=== PATIENT | female | born 1990 | race Caucasian/White ===

== ENCOUNTER 2018-10-11 21:42 | Inpatient (IN) | payer OTHER ==
--- NOTE | 2018-10-11 21:57 | EDPHY ---
H & P Stated Complaint: paranoid delusional Source: Patient - Personal History LMP (Females 10-55): 22-28 Days Ago Current Tetanus/Diphtheria Vaccine: Yes Current Tetanus Diphtheria and Acellular Pertussis (TDAP): Yes - Medical/Surgical History Hx Asthma: No Hx Chronic Respiratory Disease: No Hx Diabetes: No Hx Cardiac Disease: No Hx Renal Disease: No Hx Cirrhosis: No Hx Alcoholism: No Hx HIV/AIDS: No Hx Splenectomy or Spleen Trauma: No Other PMH: ect therapy - Social History Smoking Status: Never smoked Time Seen by Provider: 10/11/18 21:54 HPI/ROS: HPI CHIEF COMPLAINT: Paranoid. Depressed. M1 hold. HISTORY OF PRESENT ILLNESS: 28-year-old female, schizoaffective disorder, bipolar subtype, history depression, presents emergency room with her grandmother from [place] they drove here, she sees Dr. Matute. Gets ECT. Presents emergency room feeling paranoid. Concerned about people outside of her residence. Depressed. Thoughts of SI with no specific plan. Patient psychiatrist is Dr. Matute. Past Medical History: Schizoaffective disorder, bipolar, depression Past Surgical History: No recent surgery Social History: Lives in [place]. Grandmother at bedside. Denies illicit drugs. Family History: Noncontributory. ROS REVIEW OF SYSTEMS: 10 Systems were reviewed and negative with the exception of the elements mentioned in the history of present illness. Exam Constitutional triage nursing summary reviewed, vital signs reviewed, awake/ alert. Eyes normal conjunctivae and sclera, EOMI, PERRLA. HENT normal inspection, atraumatic, moist mucus membranes, no epistaxis, neck supple/ no meningismus, no raccoon eyes. Respiratory clear to auscultation bilaterally, normal breath sounds, no respiratory distress, no wheezing. Cardiovascular rate normal, regular rhythm, no murmur, no edema, distal pulses normal. Gastrointestinal soft, non-tender, no rebound, no guarding, normal bowel sounds, no distension, no pulsatile mass. Genitourinary no CVA tenderness. Musculoskeletal no midline vertebral tenderness, full range of motion, no calf swelling, no tenderness of extremities, no meningismus, good pulses, neurovascularly intact. Skin pink, warm, & dry, no rash, skin atraumatic. Neurologic awake, alert and oriented x 3, AAOx3, moves all 4 extremities equally, motor intact, sensory intact, CN II-XII intact, normal cerebellar, normal vision, normal speech. Psychiatric flat affect, depressed, staring in space. Somewhat paranoid. Heme/Lymph/Immune no lymphadenopathy. Differential Diagnosis: Includes but is not limited to in a particular order: Schizoaffective disorder, bipolar disorder, depressed, paranoid Medical Decision Making: Plan for this patient blood draw for medical clearance , urine drug screen, M1 hold, patient need medical clearance and then mental health evaluation most likely placement. Re-evaluation: (Noé Lemus) Constitutional: Initial Vital Signs Temperature (C) 37 C 10/11/18 21:45 Heart Rate 100 10/11/18 21:45 Respiratory Rate 18 10/11/18 21:45 Blood Pressure 129/87 H 10/11/18 21:45 O2 Sat (%) 97 10/11/18 21:45 O2 Delivery Mode Room Air Allergies/Adverse Reactions: No Allergies [NKDA] Allergy (Verified 01/06/18 14:12) Home Medications: Medication Instructions Recorded Multivitamins [Multivitamin (*)] 1 each PO DAILY 06/10/18 Vortioxetine Hydrobromide 20 mg PO DAILY 06/10/18 [Trintellix] [place] 5/325 (*) 1 - 2 tab PO Q3-4PRN PRN 06/15/18 Rexulti 4 mg PO HS 08/03/18 [place] Carbonate 450 mg PO DAILY 08/17/18 Medical Decision Making ED Course/Re-evaluation: 0535: Patient been sleeping. No acute events. This 7:00 a.m. Patient signed over to Dr. Silva. M1 home. Pending evaluation. (Noé Lemus) 6:50 a.m. The patient has been accepted at [address] [place] [address] Matute. I have completed transfer paperwork. (Ravinder Silva) - Data Points Laboratory Results: Laboratory Results 10/11/18 22:00 10/11/18 22:00 10/11/18 10/11/18 10/11/18 22:40 22:00 22:00 WBC RBC Hgb Hct MCV MCH MCHC RDW Plt Count MPV Neut % (Auto) Lymph % (Auto) [place] % (Auto) Eos % (Auto) Baso % (Auto) Nucleat RBC Rel Count Absolute Neuts (auto) Absolute Lymphs (auto) Absolute Monos (auto) Absolute Eos (auto) Absolute Basos (auto) Absolute Nucleated RBC Immature Gran % Immature Gran # Sodium 139 mEq/L mEq/L (135-145) Potassium 4.2 mEq/L mEq/L (3.5-5.2) Chloride 110 mEq/L mEq/L (97-110) Carbon Dioxide 19 mEq/l L mEq/l (22-31) Anion Gap 10 mEq/L mEq/L (6-14) BUN 9 mg/dL mg/dL (7-23) Creatinine 0.7 mg/dL mg/dL (0.6-1.0) Estimated GFR > 60 Glucose 94 mg/dL mg/dL (70-100) Calcium 9.3 mg/dL mg/dL (8.5-10.4) Beta HCG, Qual Urine Opiates Screen NEGATIVE (NEGATIVE) Urine Barbiturates NEGATIVE (NEGATIVE) Ur Phencyclidine Scrn NEGATIVE (NEGATIVE) Ur Amphetamine Screen NEGATIVE (NEGATIVE) U Benzodiazepines Scrn NEGATIVE (NEGATIVE) Urine Cocaine Screen NEGATIVE (NEGATIVE) U Marijuana (THC) Screen NEGATIVE (NEGATIVE) Ethyl Alcohol < 10 mg/dL mg/dL (0-10) 10/11/18 10/11/18 22:00 22:00 WBC 5.20 10^3/uL 10^3/uL (3.80-9.50) RBC 4.74 10^6/uL 10^6/uL (4.18-5.33) Hgb 15.0 g/dL g/dL (12.6-16.3) Hct 44.2 % % (38.0-47.0) MCV 93.2 fL fL (81.5-99.8) MCH 31.6 pg pg (27.9-34.1) MCHC 33.9 g/dL g/dL (32.4-36.7) RDW 11.9 % % (11.5-15.2) Plt Count 274 10^3/uL 10^3/uL (150-400) MPV 10.6 fL fL (8.7-11.7) Neut % (Auto) 47.2 % % (39.3-74.2) Lymph % (Auto) 38.7 % % (15.0-45.0) [place] % (Auto) 12.3 % % (4.5-13.0) Eos % (Auto) 1.2 % % (0.6-7.6) Baso % (Auto) 0.2 % L % (0.3-1.7) Nucleat RBC Rel Count 0.0 % % (0.0-0.2) Absolute Neuts (auto) 2.46 10^3/uL 10^3/uL (1.70-6.50) Absolute Lymphs (auto) 2.01 10^3/uL 10^3/uL (1.00-3.00) Absolute Monos (auto) 0.64 10^3/uL 10^3/uL (0.30-0.80) Absolute Eos (auto) 0.06 10^3/uL 10^3/uL (0.03-0.40) Absolute Basos (auto) 0.01 10^3/uL L 10^3/uL (0.02-0.10) Absolute Nucleated RBC 0.00 10^3/uL 10^3/uL (0-0.01) Immature Gran % 0.4 % % (0.0-1.1) Immature Gran # 0.02 10^3/uL 10^3/uL (0.00-0.10) Sodium Potassium Chloride Carbon Dioxide Anion Gap BUN Creatinine Estimated GFR Glucose Calcium Beta HCG, Qual NEGATIVE Urine Opiates Screen Urine Barbiturates Ur Phencyclidine Scrn Ur Amphetamine Screen U Benzodiazepines Scrn Urine Cocaine Screen U Marijuana (THC) Screen Ethyl Alcohol Departure - Departure Disposition: [facility] IP Clinical Impression: Bipolar disorder Condition: Fair Referrals: NONE *PRIMARY CARE P,. [Primary Care Provider] - As per Instructions
[2018-10-11 22:11] LABS: PLATELET COUNT 274 10^3/uL (150-400)
[2018-10-12] MEDS ORDERED: MIDAZOLAM 2 MG/2 ML VIAL ONE (08:03)
[2018-10-12] MEDS ORDERED: fentaNYL 100 MCG/2 ML INJ ONE (08:03)
[2018-10-12] MEDS ORDERED: KETOROLAC 30 MG/1 ML SDV ONE (08:03)
[2018-10-12] MEDS ORDERED: ONDANSETRON 4 MG/2 ML VIAL ONE (08:04)
[2018-10-12] MEDS ORDERED: SUCCINYLCHOLINE CHLORIDE 200 MG/10 ML VIAL ONE (08:04)
[2018-10-12] MEDS ORDERED: ETOMIDATE 20 MG/10 ML VIAL ONE (08:04)
[2018-10-12] MEDS ORDERED: MAG HYDROX/AL HYDROX/SIMETH 30 ML UDCUP PO PRN (10:01)
[2018-10-12] MEDS ORDERED: MAGNESIUM HYDROXIDE 30 ML UDCUP PO PRN (10:01)
[2018-10-12] MEDS ORDERED: NS 1,000 ML IV PRN (10:05)
[2018-10-12] MEDS ORDERED: ONDANSETRON DISINTEGRATING 4 MG TAB PO PRN (10:05)
[2018-10-12] MEDS ORDERED: CITRIC ACID/SODIUM CITRATE 30 ML UDCUP PO PRN (10:05)
--- NOTE | 2018-10-12 11:19 | POSTANESTH ---
Post Anesthetic Evaluation Cardiovascular Status: Normal, Stable Respiratory Status: Normal, Stable Level of Consciousness/Mental Status: Can Participate in Eval, Mildly Sleepy, Arousable Pain Control: Adequate, Prn Tx Ordered Nausea/Vomiting Control: Adequate, Prn Tx Ordered Complications Possibly Related to Anesthesia: None Noted
--- NOTE | 2018-10-12 11:20 | PDHPUP ---
History & Physical Update H&P update statement: This history and physical update is based on an assessment of the patient which was completed after admission or registration (within 24 hours), but prior to the surgery/procedure. H&P update: H&P reviewed & patient examined, changes noted (actue depression necesitating inpt admission to psychiatric unit)
--- NOTE | 2018-10-12 11:23 | PDANEPAE ---
ECT Pre Anesthetic Evaluation Allergies/Adverse Reactions: No Allergies [NKDA] Allergy (Verified 01/06/18 14:12) Patient ID confirmed: Yes H&P reviewed: Yes Pre-anesthetic history reviewed: Yes Heart: regular rate and rhythym, tachycardia Lungs: clear to auscultation Mallampati Score: Class 1 ASA Status: II Home Medications: Medication Instructions Recorded Vortioxetine Hydrobromide 20 mg PO DAILY 06/10/18 [Trintellix] Hydrocodone/APAP 5/325 [[place] 1 - 2 each PO Q4-6PRN PRN 06/15/18 5/325 (*)] Brexpiprazole [Rexulti 3 MG (*)] 3 mg PO DAILY 08/03/18 [place] Carbonate ER [Eskalith Cr 450 mg PO HS 08/17/18 450 mg (*)] Acetaminophen [Tylenol 325mg (*)] 325 mg PO DAILY PRN 10/12/18 Loratadine [Claritin 10 mg] 10 mg PO DAILY 10/12/18 [place] 0.25-0.035 1 each PO DAILY 10/12/18 Prazosin HCl [Minipress 1mg (*)] 1 mg PO HS 10/12/18 Medication review: completed Patient interviewed: Yes (paranoid thinking, SI recently with no definite plan) Patient examined: Yes See previous record: Yes Anesthetic plan discussed with patient: Yes Anesthetic risks discussed with patient: Yes ECT Pre-Anesthetic History - Height & Weight Height: 157.48 cm Weight: 68.039 kg BMI: 27.46 - Anesthesia History Hx Anesthesia Complications (with details): no Family Hx Anesthesia Complications: no - Medications In the Past 6 Months the Patient Has Taken: Narcotics - Tobacco/Alcohol/Drug Use Smoking Status: Never smoked Hx Drug/Substance Abuse: Yes Alcohol Use: No (denies) - Prior Surgeries/Hospitalizations Prior Surgeries: none Prior Medical Hospitalizations: none - Pulmonary History ECT Hx Asthma: No Hx Abnormal Chest X-Ray: No Hx Oxygen in Use at Home: No - Cardiovascular History Hx Hypertension: No Currently Uses Hypertension Medication: No Hx Arrhythmias: No Hx Palpitations: No Hx Chest Pain: No Hx Coronary Artery / Peripheral Vascular Disease: No Hx Blood Clot: No - Neurologic History Hx Cerebrovascular Accident: No Hx CT Scan Or MRI Of The Brain: Yes Hx Epilepsy, Convulsions, Seizures, Or Blackouts: No Hx Frequent Or Severe Headaches: No Hx Numbness: No Hx Neurologic Disorder: No - Dental History Current Dental Issues: None - Endocrine History Hx Diabetes: No Current Daily Insulin Injections: No Hx Thyroid Problems: No - Renal/Urologic History Hx Renal Disorders: No Hx Urinary Tract Problems: No - Liver History Hx Hepatic Disorders: No - Cancer History Hx Cancer: No - Hematology History Hx Unexplained Bleeding Of Any Type: No Hx Ease Of Bruising: No Hx Anemia: No - Gastrointestinal History Hx Gastroesophogeal Reflux Disease: No Hx Ulcers: No Hx Hiatal Hernia: No Hx Difficulty Swallowing: No - Musculoskeletal Hisory Hx Chronic Pain: No Hx Arthritis: No - Opthalmic History Hx Glaucoma: No Visual Assistive Devices: None Hx Opthalmic Disorders: No - Other Health History Physical Disabililty: No Recent Cough, Cold, or Fever: Yes Significant Weight Loss In The Last 4 Months: No Possible the Patient Might be : No
[2018-10-12] MEDS ORDERED: PROMETHAZINE HCL 25 MG TAB PO PRN (12:03)
[2018-10-12] MEDS ORDERED: NALOXONE HCL 0.4 MG/ML INJ IVP PRN (12:03)
--- NOTE | 2018-10-12 12:07 | PDECTPN ---
ECT Progress Note Patient Problems: Problems Problem Status Onset Code Bipolar disorder Acute F31.9 Cluster B personality disorder Acute F60.9 Alcohol abuse Acute F10.10 Marijuana abuse Acute F12.10 Schizoaffective disorder, bipolar type Acute F25.0 PTSD (post-traumatic stress disorder) Acute F43.10 Bipolar disorder with current episode depressed Acute F31.30 Depression Acute F32.9 Date: 18 ECT provider: Abdias Cartagena Anesthesia: Margot Saavedra Stimulus dose (%): 100 Pulse width: 0.5 ECT EMG (sec): 38 ECT EEG (sec): 58 ECT treatment type: bilateral QIDS-SR Total Score: 21 QIDS-SR Question #12 Score: 2 Next ECT date: 10/14/18 Next ECT time: 11:30 O/P psychiatrist follow up with : Phil O/P psychiatrist follow up: phone, voice message Home medications: Medication Instructions Recorded Vortioxetine Hydrobromide 20 mg PO DAILY 06/10/18 [Trintellix] Hydrocodone/APAP 5/325 [[place] 1 - 2 each PO Q4-6PRN PRN 06/15/18 5/325 (*)] Brexpiprazole [Rexulti 3 MG (*)] 3 mg PO DAILY 08/03/18 [place] Carbonate ER [Eskalith Cr 450 mg PO HS 08/17/18 450 mg (*)] Acetaminophen [Tylenol 325mg (*)] 325 mg PO DAILY PRN 10/12/18 Loratadine [Claritin 10 mg] 10 mg PO DAILY 10/12/18 [place] 0.25-0.035 1 each PO DAILY 10/12/18 Prazosin HCl [Minipress 1mg (*)] 1 mg PO HS 10/12/18 Medication review: completed Current treatment plan: acute phase Treatment plan frequency: 3 times per week ECT narrative: see admit note.
[2018-10-12] MEDS ORDERED: HYDROCODONE/APAP 5/325 TAB ONE (12:50)
[2018-10-12] MEDS: HYDROCODONE/APAP 5/325 TAB PO PRN ×2 (12:51→20:24)
--- NOTE | 2018-10-12 14:07 | PDECTPN ---
ECT Progress Note Patient Problems: Problems Problem Status Onset Code Bipolar disorder Acute F31.9 Alcohol abuse Acute F10.10 Bipolar disorder with current episode depressed Acute F31.30 Cluster B personality disorder Acute F60.9 Depression Acute F32.9 Marijuana abuse Acute F12.10 PTSD (post-traumatic stress disorder) Acute F43.10 Schizoaffective disorder, bipolar type Acute F25.0 Date: 10/12/18 ECT provider: Abdias Cartagena Stimulus dose (%): 100 Pulse width: 0.5 ECT EMG (sec): 38 ECT EEG (sec): 58 QIDS-SR Total Score: 21 QIDS-SR Question #12 Score: 2 O/P psychiatrist follow up with : Phil O/P psychiatrist follow up: phone, voice message Home medications: Medication Instructions Recorded Vortioxetine Hydrobromide 20 mg PO DAILY 06/10/18 [Trintellix] Hydrocodone/APAP 5/325 [[place] 1 - 2 each PO Q4-6PRN PRN 06/15/18 5/325 (*)] Brexpiprazole [Rexulti 3 MG (*)] 3 mg PO DAILY 08/03/18 [place] Carbonate ER [Eskalith Cr 450 mg PO HS 08/17/18 450 mg (*)] Acetaminophen [Tylenol 325mg (*)] 325 mg PO DAILY PRN 10/12/18 Loratadine [Claritin 10 mg] 10 mg PO DAILY 10/12/18 [place] 0.25-0.035 1 each PO DAILY 10/12/18 Prazosin HCl [Minipress 1mg (*)] 1 mg PO HS 10/12/18 Current treatment plan: acute phase ECT narrative: see admit note. AIMS test is 0
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
--- NOTE | 2018-10-12 14:22 | ASMTTCLDSP ---
TLC Discharge Disposition Disposition: Answers: Admit Disposition Notes: Notes: Voluntary admit to . Discharge Concerns/Recommendations: Notes: In consultation with [facility] ED physician, Ravinder Silva MD, on-call psychiatrist, Julián Oglesby MD, and Abdias Cartagena MD, all concurred to have pt admitted to [facility] as a voluntary ECT patient. Pt was given the prohibited belongings list while in the ED. Was patient given the Answers: Yes Inpatient [facility] Prohibited Belongings List while in the ED? For inpatient Abdias Cartagena MD admission, the following psychiatrist agreed to accept patient for admission to [facility] Date Signed: 10/12/2018 07:14 AM Electronically Signed By:Kristopher Briones
--- NOTE | 2018-10-12 14:46 | BAPA ---
IDENTIFYING DATA: This patient is a 28-year-old single white female who has been under the care of t his telegraphic typewriter installer for outpatient maintenance ECT and a prior inpatient hospitalization in May of 2018. S he sees Chaka Villarreal NP, for psychopharmacology. She presently lives with her grandmother in [place]. 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 Her last inpatient stay was at [facility] from 06/07/2018, through 06/12/2018. SOURCE OF INFORMATION: Include the patient, who is a fair historian, discussion by phone with her gr andmother and also by phone with Chaka Villarreal. Please see the telegraphic typewriter installer's initial ECT consultation dated 11/27/2017, as well as her discharge summary f rom 06/06/2018. This patient has long history of mood and psychotic symptoms most consistent with sc hizoaffective disorder, bipolar type, as well as alcohol and marijuana use disorder in remission pres ently. She also has a history of posttraumatic stress disorder given childhood trauma of being abduc brent by her Indian mother to live in [place], but ending up in foster care given her mother's mental i llness. The patient had been doing the best she had in years after the initial acute course of ECT f ollowed by a number of months of maintenance treatment last winter. However, in May, she had star brent to deteriorate when she ran out of one of her new medications, Rexulti, and became noncompliant f or a few weeks, prompting a relapse from which she has never fully recovered, despite fairly aggressi ve further acute ECT followed by more frequent maintenance treatments. Likewise, Chaka Villarreal had b een adjusting her medications without clear benefit. She does not endorse the use of alcohol or clarence gilson as a contributing variable and her urine drug screen was indeed negative in the emergency depar tment. There are no clear psychosocial triggers at this time. The only medical contributing issue c ould be a TSH that came back elevated at greater than 6, likely secondary to her recent initiation of lithium. Per Chaka Villarreal, there is some question whether she is fully compliant with her medicati on, although her grandmother feels that she has been. CURRENT MEDICATIONS: Her present medications have included: 1. Rexulti 3 mg p.o. daily. 2. Aspen carbonate 400 mg p.o. daily. 3. Trintellix 20 mg daily. 4. Prazosin 1 mg q.h.s. 5. Claritin 10 mg p.o. daily. Her present exacerbation includes significant psychotic symptoms which she feels lead to her depressi ve symptoms, hopelessness and suicidal thinking. Her QUIDS score is 21 and she scores a 2 on questio n #12 regarding suicidal thinking. She endorses visual hallucinations and even some command auditory hallucinations. For instance, she had contemplated using coping skills recently learned in her ther apy, such as taking a bath to address her nocturnal onset of paranoia, however, a voice not her own c oaxed her by saying "yes, go take a bath and drown yourself." She is unable to feel that she can war d off such encouragement and is unsure whether she would not act upon it. She has visual hallucinati ons, seeing eyes detached from a body floating and watching her. She reads things referentially into other people's actions. Her sleep and appetite are diminished. Affect is blunted and her speech is impoverished. Per her grandmother, she is much more isolative and blunted. Carlos also notices a dramatic increase in irritability. The patient has a narrative that maintenance ECT treatments not o nly have not been helpful, but have arguably made her worse. However, carlos believes and has seen evidence that she has been insidiously declining for months and there does not seem to be a clear cor relation with the ECT. She has been going to therapy with [facility], who has approached her as a traum a patient, but has clearly noticed a worsening of her status, especially as she has seen her in the e vening time where she looks "horrible" per Chaka Villarreal's report from [facility]. Her urine drug screen in the emergency room was negative. Complete blood count was normal. BioChem profile was normal. TSH was elevated as stated at 6.08. Beta HCG was negative. Aspen level, whic h was drawn 24 hours after her last dose, was 0.2 (even if this level is artificially reduced, as it was taken 12 hours after the normal trough, one can easily presume that her blood level is still subt herapeutic). The patient does, however, complain of lithium related tremor. Chaka Villarreal also rachel cated that the patient had some mouth movements, possibly consistent with early tardive dyskinesia wh en the Rexulti was increased to 4 mg, which then went away when it was reduced to 3 mg. She has been contemplating wanting to change the patient's medication (which will be discussed in the treatment p lupillo section of this report). PAST PSYCHIATRIC HISTORY, FAMILY HISTORY, SOCIAL HISTORY, ALCOHOL AND DRUG HISTORY: Please see the vincent novak's initial consultation from November of 2017. Mental. STATUS EXAM: The patient is a 28-year-old white female who appears her stated age. She appears pale , disheveled, laura looking with partial eye contact and somewhat impaired relatedness. Her affect is blunted. There is some clear psychomotor slowing. No evidence of tardive dyskinesia or EPS note d. Speech is monotonous and impoverished. Thought processes are goal directed. Thought content is positive for auditory and visual hallucinations, paranoid and referential delusions and suicidal idea tion with increasingly poor impulse control. She also has command auditory hallucinations. She is a lert and oriented x3. She has subjective impairment in memory, focus, concentration, and executive f unctioning. Judgment and insight are impaired and impulse control is tenuous. ADMITTING DIAGNOSES: [place] I: Schizoaffective disorder, bipolar type; history of alcohol and THC use disorder, posttraumat ic stress disorder, rule out hypothyroidism, weight gain. RECOMMENDATION: I have discussed at length with patient, grandmother and Chaka Villarreal the fact that this patient had had clear benefit during her initial acute course of ECT when she was at [facility] with her psychotic and mood symptoms. Her subjective appraisal that ECT is not really helping when we are doing it infrequently may not be an accurate judgment in my opinion. I, therefore, have coun seled her to at least try a short burst of acute ECT treatments, as she has once again fallen into a state that is ominously dire and not dissimilar to her initial presenting status in November of 2017. This time, there does not seem to be a precipitating agent or situation, such as substances, howeve r, her thyroid could have some contributory affect. Chaka Villarreal and myself question whether Trinte llix could be activating her and increasing irritability, given her bipolar status. Furthermore, the Rexulti, given its dopamine partial agonist may not be ideal for her positive psychotic symptoms. T hus, Trintellix and Rexulti will be discontinued. They both have rather long half-lives and should s elf-taper well. I will go ahead and start Geodon 40 mg twice daily with food. Her EKG revealed a no rmal QTC interval of 450. I will watch closely for any incipient tardive dyskinesia. Preventively, I would like her to start vitamin E and gingko biloba, but neither of those are on formulary in the ospital. I will see if grandmother can bring those in. I will start a B complex vitamin. Clozapine had been discussed with patient and Chaka Villarreal, but this patient may not have adequate adherence to be able to comply with all the lab testing and she is already quite overweight. The metabolic dis turbance from clozapine may arguably be worse than even tardive dyskinesia, if that is the ultimate w orst case scenario with Geodon. I will consider using propranolol for lithium induced tremor or Geod on induced akathisia. The lithium will be increased to 600 mg, but be held the night prior to ECT. Vraylar was also discussed, but it was unlikely that this patient's insurance would cover that. The patient will again need 24/7 supervision after discharge, if we do enough acute ECT to warrant that b ased on cognitive side effects. /[id number]/MODL
[2018-10-12] MEDS: ZIPRASIDONE HCL 40 MG CAP PO SCH (17:23)
--- NOTE | 2018-10-12 18:32 | BCON ---
INTERNAL MEDICINE CONSULTATION. DATE OF CONSULTATION: 10/12/2018 REFERRING PHYSICIAN: Abdias Cartagena MD REASON FOR REFERRAL: Medical clearance for inpatient behavioral health stay. HISTORY OF PRESENT ILLNESS: This is a patient who gets ECT per Dr. Cartagena. She came to the [facility] Emergency Room with her grandmother from [place] with depression, paranoia and thoughts of suicidal ideation. She was admitted for further psychiatric care including electroconvulsive therapy. She is currently without any acute complaints other than reporting a headache post ECT. PAST MEDICAL HISTORY: She denies any history of medical illnesses. She has psychiatric diagnoses of schizoaffective disorder, bipolar disorder, and depression. PAST SURGICAL HISTORY: She denies any history of surgeries. SOCIAL HISTORY: She rents a room from her grandmother in [place]. She denies smoking or alcohol use or illicit drug use. 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 She has a boyfriend. FAMILY HISTORY: Noncontributory. MEDICATIONS: Prior to admission. 1. Loratadine 10 mg p.o. daily. 2. Acetaminophen 325 mg p.o. daily p.r.n. 3. Prazosin 1 mg p.o. at bedtime. 4. control pill. 5. [place] 450 mg p.o. at bedtime. 6. Hydrocodone/acetaminophen 5/325, one to 2 tablets p.o. q.4-6 hours p.r.n. 7. Brexpiprazole 3 mg p.o. daily. 8. Vortioxetine 20 mg p.o. daily. ALLERGIES: There are no known drug allergies. REVIEW OF SYSTEMS: Other than her post ECT headache, she denies pain. She denies fevers or chills. She has had weight gain, which she attributes to the brexpiprazole. She gets regular exercise walking with her boyfriend and they have begun jogging recently. Otherwise, a 10-point review of systems is negative. PHYSICAL EXAM: VITAL SIGNS: Blood pressure is 103/59, heart rate is 94, respiratory rate is 14, oxygen saturation is 93% on room air. Her weight is 68 kg for a body mass index of 27.4. GENERAL: This is an overweight woman, sitting on the couch, dressed in street clothes, cooperative and in no acute distress. HEENT: Extraocular movements are intact. Pupils are equal, round, reactive to light. Mucous membranes are moist. Dentition is in good condition. She has an uncrowded airway, Mallampati class 1. NECK: Supple. HEART: Regular rate and rhythm with no murmurs, rubs, or gallops. LUNGS: Clear to auscultation bilaterally. ABDOMEN: Benign. EXTREMITIES: There is no cyanosis, clubbing, or edema. NEUROLOGIC: She is alert and oriented x3. She has a somewhat flat affect. Cranial nerves 2-12 are grossly intact. There is no focal weakness. Sensation is intact to light touch. LABORATORY STUDIES: From the emergency department, CBC was overall within normal limits. She had a decrement of basophils of no clinical significance. Serum chemistry revealed normal renal function and electrolytes but for a slightly low carbon dioxide at 19. TSH was slightly elevated at 6.08. Free T4 and free T3 were normal. Beta hCG was negative for . Toxicology screen in the serum was negative for ethyl alcohol. [place] level was undetectable. Toxicology screen in the urine was negative for any substances of abuse. ASSESSMENT/RECOMMENDATIONS: 1. Mental health issues, receiving ongoing electroconvulsive therapy per Dr. Cartagena. 2. Weight gain, possibly due to psychiatric medications. She has begun and recently intensified an exercise program. She might benefit from consultation with the dietitian as avoidance of further weight gain would be in her best interest. I see no medical contraindications to this patient's continued stay on the inpatient behavioral health unit or to any psychiatric medications or procedures. Thank you very much for including me in the care of this patient and please do not hesitate to contact me or the hospitalist service should there be need for further medical evaluation. /[id number]/MODL MTDD
[2018-10-12] MEDS: LITHIUM CARBONATE ER 300 MG TAB PO SCH (20:24)
[2018-10-12] MEDS: PRAZOSIN HCL 1 MG CAP PO SCH (20:24)
[2018-10-12] MEDS: OMEGA-3 FATTY ACIDS 1,000 MG CAP PO SCH (20:25)
[2018-10-12] MEDS ORDERED: LITHIUM CARBONATE ER 450 MG TAB PO SCH (21:00)
--- NOTE | 2018-10-13 06:56 | CPEKG ---
Test Reason : OPEN Blood Pressure : / mmHG Vent. Rate : 087 BPM Atrial Rate : 085 BPM P-R Int : 159 ms QRS Dur : 088 ms QT Int : 377 ms P-R-T Axes : 048 047 -12 degrees QTc Int : 454 ms Sinus rhythm Borderline T abnormalities, inferior leads Confirmed by Noé Lemus ([id number]) on 10/13/2018 6:55:46 AM Referred By: Confirmed By:Noé Lemus
--- NOTE | 2018-10-13 08:04 | ASMTBHMTP ---
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 Pt receives maintenance outpatient ECT treatment under Dr. Abdias Cartagena at the [facility]. She was most recently hospitalized at [facility] and then transferred to [facility] 3 from 06/06/18 to 06/12/18 after she had taken an unknown amount of hydrocodone and aspirin and her boyfriend found her. At that time, she had not been taking her Rexulti. She had also been hospitalized two other times within the past year and that her depression worsened in April 2017. She was hospitalized at [facility] in [place] for 7 days. She could not recall the exact dates of the other two hospitalizations. Pt agrees to albert for safety on the [facility] and agrees to being a voluntary admission. Patient's stated presenting problems: Notes: "Depression and Psychosis Patient's goals for treatment: Notes: To feel better Patient's strengths: Notes: none Identify supports outside of hospital: Notes: family and friends Discharge criteria: Notes: Suicidal Ideation will resolve and patient will have a plan to safely manage recurrent suicidal ideation. Initial disposition plan/considerations: Notes: Return home to [facility]* Master Treatment Plan Required Signatures Psychiatrist signature: Answers: Psychiatrist: RN on-shift signature: Answers: RN: Patient signature: Answers: Patient: Date Signed: 10/13/2018 08:03 AM Electronically Signed By:Silvano Villarreal
[2018-10-13] MEDS: CETIRIZINE 10 MG TAB PO SCH (08:50)
[2018-10-13] MEDS: OMEGA-3 FATTY ACIDS 1,000 MG CAP PO SCH ×2 (08:50→20:10)
[2018-10-13] MEDS: VITAMIN B COMPLEX 1 EA CAP/TAB PO SCH (08:50)
[2018-10-13] MEDS: ZIPRASIDONE HCL 40 MG CAP PO SCH ×2 (08:50→17:34)
[2018-10-13] MEDS ORDERED: (Vortioxetine Hydrobromide [Trintellix] 20 MG) PO SCH (09:00)
[2018-10-13] MEDS ORDERED: BREXPIPRAZOLE 3 MG TAB PO SCH (09:00)
[2018-10-13] MEDS: MONO LINYAH PO SCH (09:07)
--- NOTE | 2018-10-13 10:56 | SOAPPROG ---
SOAP Progress Note Assessment/Plan: Assessment: Schizoaffective disorder, Bipolar type, ETOH and THC use disorder in remission, PTSD Plan: Pt in bed while interviewed at 1045 am. Unkempt, disheveled. Affect blunted, Impov speech. Admits to feeling over sedated,likely due to addition to Geodon. SOme increase in tremor noted. [place] some "fear" and paranoia last night into today, but agrees that her overall mood and psychotic symptoms are a bit less intense post ECT. Has been ruminating about stories of " children found in the mountains" and admits she cannot provide a rational reason why she is dwelling on this theme. Some on going referential delusional material. Some AH. No iván CAH coaxing her to self harm. No clear w/d symptoms with d/c rexulti or trintillix both of which have long 1/2 lives. Read and appreciate Dr Almonte' s note. Have repleted pt with synthroid due to elevated TSH and potential for this to be correlated with mood instability. Hopefully, being off AD and Rexulti, pt may lose weight as Geodon is mostly metabolically neutral 10/13/18 10:52 10/13/18 10:56 Objective: Vital Signs Temp Pulse Resp BP Pulse Ox 36.9 C 74 14 103/57 L 96 10/13/18 06:00 10/13/18 06:00 10/13/18 06:00 10/13/18 06:00 10/13/18 06:00 10/12/18 10/13/18 10/14/18 05:59 05:59 05:59 Intake Total 1000 Balance 1000 ICD10 Worksheet Patient Problems: Problems Problem Status Onset Bipolar disorder Acute Alcohol abuse Acute Bipolar disorder with current episode depressed Acute Cluster B personality disorder Acute Depression Acute Marijuana abuse Acute PTSD (post-traumatic stress disorder) Acute Schizoaffective disorder, bipolar type Acute
[2018-10-13] MEDS: LEVOTHYROXINE 50 MCG TAB PO SCH (10:57)
[2018-10-13] MEDS: PRAZOSIN HCL 1 MG CAP PO SCH (20:10)
[2018-10-14] MEDS ORDERED: CITRIC ACID/SODIUM CITRATE 30 ML UDCUP PO PRN (04:00)
[2018-10-14] MEDS ORDERED: NS 1,000 ML IV PRN (04:00)
[2018-10-14] MEDS ORDERED: ONDANSETRON DISINTEGRATING 4 MG TAB PO PRN (04:00)
[2018-10-14] MEDS: OMEGA-3 FATTY ACIDS 1,000 MG CAP PO SCH ×2 (08:25→20:31)
[2018-10-14] MEDS: VITAMIN B COMPLEX 1 EA CAP/TAB PO SCH (08:25)
[2018-10-14] MEDS: LEVOTHYROXINE 50 MCG TAB PO SCH (08:25)
[2018-10-14] MEDS: CETIRIZINE 10 MG TAB PO SCH (08:25)
[2018-10-14] MEDS: ZIPRASIDONE HCL 40 MG CAP PO SCH ×2 (08:25→18:05)
[2018-10-14] MEDS: MONO LINYAH PO SCH (11:13)
[2018-10-14] MEDS ORDERED: CITRIC ACID/SODIUM CITRATE 30 ML UDCUP ONE (11:53)
[2018-10-14] MEDS ORDERED: ONDANSETRON DISINTEGRATING 4 MG TAB ONE (11:53)
--- NOTE | 2018-10-14 12:14 | PDANEPAE ---
ECT Pre Anesthetic Evaluation Allergies/Adverse Reactions: No Allergies [NKDA] Allergy (Verified 01/06/18 14:12) Patient ID confirmed: Yes H&P reviewed: Yes Pre-anesthetic history reviewed: Yes Heart: tachycardia Lungs: clear to auscultation Mallampati Score: Class 1 ASA Status: II Home Medications: Medication Instructions Recorded Vortioxetine Hydrobromide 20 mg PO DAILY 06/10/18 [Trintellix] Hydrocodone/APAP 5/325 [[place] 1 - 2 each PO Q4-6PRN PRN 06/15/18 5/325 (*)] Brexpiprazole [Rexulti 3 MG (*)] 3 mg PO DAILY 08/03/18 [place] Carbonate ER [Eskalith Cr 450 mg PO HS 08/17/18 450 mg (*)] Acetaminophen [Tylenol 325mg (*)] 325 mg PO DAILY PRN 10/12/18 Loratadine [Claritin 10 mg] 10 mg PO DAILY 10/12/18 [place] 0.25-0.035 1 each PO DAILY 10/12/18 Prazosin HCl [Minipress 1mg (*)] 1 mg PO HS 10/12/18 Medication review: completed Patient interviewed: Yes (No problems after last ECT.) Patient examined: Yes See previous record: Yes Anesthetic plan discussed with patient: Yes Anesthetic risks discussed with patient: Yes ECT Pre-Anesthetic History - Height & Weight Height: 157.48 cm Weight: 68.039 kg BMI: 27.46 - Anesthesia History Hx Anesthesia Complications (with details): no Family Hx Anesthesia Complications: no - Medications In the Past 6 Months the Patient Has Taken: Narcotics - Tobacco/Alcohol/Drug Use Smoking Status: Never smoked Hx Drug/Substance Abuse: Yes Alcohol Use: No (denies) - Prior Surgeries/Hospitalizations Prior Surgeries: none Prior Medical Hospitalizations: none - Pulmonary History ECT Hx Asthma: No Hx Abnormal Chest X-Ray: No Hx Oxygen in Use at Home: No - Cardiovascular History Hx Hypertension: No Currently Uses Hypertension Medication: No Hx Arrhythmias: No Hx Palpitations: No Hx Chest Pain: No Hx Coronary Artery / Peripheral Vascular Disease: No Hx Blood Clot: No - Neurologic History Hx Cerebrovascular Accident: No Hx CT Scan Or MRI Of The Brain: Yes Hx Epilepsy, Convulsions, Seizures, Or Blackouts: No Hx Frequent Or Severe Headaches: No Hx Numbness: No Hx Neurologic Disorder: No - Dental History Current Dental Issues: None - Endocrine History Hx Diabetes: No Current Daily Insulin Injections: No Hx Thyroid Problems: No - Renal/Urologic History Hx Renal Disorders: No Hx Urinary Tract Problems: No - Liver History Hx Hepatic Disorders: No - Cancer History Hx Cancer: No - Hematology History Hx Unexplained Bleeding Of Any Type: No Hx Ease Of Bruising: No Hx Anemia: No - Gastrointestinal History Hx Gastroesophogeal Reflux Disease: No Hx Ulcers: No Hx Hiatal Hernia: No Hx Difficulty Swallowing: No - Musculoskeletal Hisory Hx Chronic Pain: No Hx Arthritis: No - Opthalmic History Hx Glaucoma: No Visual Assistive Devices: None Hx Opthalmic Disorders: No - Other Health History Physical Disabililty: No Recent Cough, Cold, or Fever: Yes Significant Weight Loss In The Last 4 Months: No Possible the Patient Might be : No
--- NOTE | 2018-10-14 12:14 | PDHPUP ---
History & Physical Update H&P update statement: This history and physical update is based on an assessment of the patient which was completed after admission or registration (within 24 hours), but prior to the surgery/procedure. H&P update: H&P reviewed & patient examined, changes noted (No changess since last ECT treatment.)
--- NOTE | 2018-10-14 12:17 | PDECTPN ---
ECT Progress Note Patient Problems: Problems Problem Status Onset Code Bipolar disorder Acute F31.9 Alcohol abuse Acute F10.10 Bipolar disorder with current episode depressed Acute F31.30 Cluster B personality disorder Acute F60.9 Depression Acute F32.9 Marijuana abuse Acute F12.10 PTSD (post-traumatic stress disorder) Acute F43.10 Schizoaffective disorder, bipolar type Acute F25.0 Date: 10/14/18 Treatment#: 2 ECT provider: Abdias Cartagena Anesthesia: Margot Saavedra Stimulus dose (%): 100 Pulse width: 0.5 ECT EMG (sec): 36 ECT EEG (sec): 47 ECT treatment type: bilateral QIDS-SR Total Score: 13 QIDS-SR Question #12 Score: 2 MMSE Total Score (Max = 21): 18 Next ECT date: 10/16/18 Next ECT time: 11:00 O/P psychiatrist follow up with : Phil O/P psychiatrist follow up: phone, voice message Home medications: Medication Instructions Recorded Vortioxetine Hydrobromide 20 mg PO DAILY 06/10/18 [Trintellix] Hydrocodone/APAP 5/325 [[place] 1 - 2 each PO Q4-6PRN PRN 06/15/18 5/325 (*)] Brexpiprazole [Rexulti 3 MG (*)] 3 mg PO DAILY 08/03/18 [place] Carbonate ER [Eskalith Cr 450 mg PO HS 08/17/18 450 mg (*)] Acetaminophen [Tylenol 325mg (*)] 325 mg PO DAILY PRN 10/12/18 Loratadine [Claritin 10 mg] 10 mg PO DAILY 10/12/18 [place] 0.25-0.035 1 each PO DAILY 10/12/18 Prazosin HCl [Minipress 1mg (*)] 1 mg PO HS 10/12/18 Current treatment plan: acute phase Treatment plan frequency: 3 times per week ECT narrative: see admit note. AIMS test is 0 Note from 10/13: Pt in bed while interviewed at 1045 am. Unkempt, disheveled. Affect blunted, Impov speech. Admits to feeling over sedated,likely due to addition to Geodon. SOme increase in tremor noted. [place] some "fear" and paranoia last night into today, but agrees that her overall mood and psychotic symptoms are a bit less intense post ECT. Has been ruminating about stories of " [place] found in the mountains" and admits she cannot provide a rational reason why she is dwelling on this theme. Some on going referential delusional material. Some AH. No iván CAH coaxing her to self harm. No clear w/d symptoms with d/c rexulti or trintillix both of which have long 1/2 lives. Read and appreciate Dr Almonte' s note. Have repleted pt with synthroid due to elevated TSH and potential for this to be correlated with mood instability. Hopefully, being off AD and Rexulti, pt may lose weight as Jarvis is mostly metabolically neutral 10/14/18: Pt reports feeling less sedated from meds and woke up "with a lot of energy". Still appears somewhat unkempt and blunted, however. Still admits to paranoid and macabre ruminations about children in the mountains, as spoken of yesterday. She admits that she is jonesing to be discharged, yet acknowledges that this may not be an astute judgment given her recent CAH and SI, the latter of which still persists. No evidence of TD still.
[2018-10-14] MEDS ORDERED: NALOXONE HCL 0.4 MG/ML INJ IVP PRN (12:28)
[2018-10-14] MEDS ORDERED: HYDROCODONE/APAP 5/325 TAB PO PRN (12:28)
[2018-10-14] MEDS ORDERED: PROMETHAZINE HCL 25 MG TAB PO PRN (12:28)
[2018-10-14] MEDS ORDERED: HYDROCODONE/APAP 5/325 TAB ONE (13:03)
[2018-10-14] MEDS: LITHIUM CARBONATE ER 300 MG TAB PO SCH (20:31)
[2018-10-14] MEDS: PRAZOSIN HCL 1 MG CAP PO SCH (20:31)
[2018-10-15] MEDS: ZIPRASIDONE HCL 40 MG CAP PO SCH ×2 (09:10→20:03)
[2018-10-15] MEDS: OMEGA-3 FATTY ACIDS 1,000 MG CAP PO SCH ×2 (09:10→20:03)
[2018-10-15] MEDS: VITAMIN B COMPLEX 1 EA CAP/TAB PO SCH (09:10)
[2018-10-15] MEDS: CETIRIZINE 10 MG TAB PO SCH (09:10)
[2018-10-15] MEDS: LEVOTHYROXINE 50 MCG TAB PO SCH (09:10)
--- NOTE | 2018-10-15 12:18 | ASMTCMCOM ---
CM Note CM Note Notes: The patient participated in clinical treatment team rounds. She was engaged and appropriate. She reported having a difficult weekend prior to admission due to "seeing eyes looking at me." She stated, "I was conscious that they were not real but that didn't prevent me from seeing them. I became depressed and scared." The patient reported fear that she will continue to hallucinate. She reported that she has a "fear of the dark" and sleeps with the lights on. The patient reported that she is "working on getting out of here" and plans to discharge tomorrow, 10/16/18 after ECT treatment. The patient has received two treatments since being hospitalized. The patient plans to have her boyfriend transport her to [place] where she will stay with family members; father or aunt, until her grandmother returns for traveling at which time the patient will continue living with her grandmother. The patient reported that it is a stable and supportive environment. She stated, "I moved out of my apartment and in with my grandmother because of my mental health issues." Date Signed: 10/15/2018 12:18 PM Electronically Signed By:Soha Flores
--- NOTE | 2018-10-15 12:53 | SOAPPROG ---
SOAP Progress Note Assessment/Plan: Assessment: Schizoaffective disorder, Bipolar type, ETOH and THC use disorder in remission, PTSD Plan: Pt in bed while interviewed at 1045 am. Unkempt, disheveled. Affect blunted, Impov speech. Admits to feeling over sedated,likely due to addition to Geodon. SOme increase in tremor noted. [place] some "fear" and paranoia last night into today, but agrees that her overall mood and psychotic symptoms are a bit less intense post ECT. Has been ruminating about stories of " children found in the mountains" and admits she cannot provide a rational reason why she is dwelling on this theme. Some on going referential delusional material. Some AH. No iván CAH coaxing her to self harm. No clear w/d symptoms with d/c rexulti or trintillix both of which have long 1/2 lives. Read and appreciate Dr Almonte' s note. Have repleted pt with synthroid due to elevated TSH and potential for this to be correlated with mood instability. Hopefully, being off AD and Rexulti, pt may lose weight as Geodon is mostly metabolically neutral 10/13/18 10:52 10/13/18 10:56 10/15/18 12:45 Met with pt and BF, and then with grandma by phone who is in [place]. She seems a bit brighter and denies CAH or significant SI. Has some future orientation, re wanting to get back to work. Still having nocturnal increase in paranoid ideas and macabre thoughts. No signs of TD or akithesia. Will increase Geodon dose at hs. May Rx propranolol to be used for restlessness/akithisia or Li induced tremor. GM reassured me that father and AUnt and 1/2 sister who are coming in to visit would create a supportive environment if she d/c'ed tomorrow. I counselled her to let father know that pt can come back to ED if symptoms increase. Objective: Vital Signs Temp Pulse Resp BP Pulse Ox 36.9 C 853 H 14 98/56 L 95 10/15/18 06:00 10/15/18 06:00 10/15/18 06:00 10/15/18 06:00 10/15/18 06:00 10/14/18 10/15/18 10/16/18 05:59 05:59 05:59 Intake Total 175 Balance 175 ICD10 Worksheet Patient Problems: Problems Problem Status Onset Bipolar disorder Acute Alcohol abuse Acute Bipolar disorder with current episode depressed Acute Cluster B personality disorder Acute Depression Acute Marijuana abuse Acute PTSD (post-traumatic stress disorder) Acute Schizoaffective disorder, bipolar type Acute
[2018-10-15] MEDS ORDERED: PROPRANOLOL HCL 10 MG TAB PO PRN (12:57)
[2018-10-15] MEDS: MONO LINYAH PO SCH (13:18)
[2018-10-15] MEDS: PRAZOSIN HCL 1 MG CAP PO SCH (20:03)
[2018-10-16] MEDS ORDERED: NS 1,000 ML IV PRN (04:00)
[2018-10-16] MEDS ORDERED: ONDANSETRON DISINTEGRATING 4 MG TAB PO PRN (04:00)
[2018-10-16] MEDS ORDERED: CITRIC ACID/SODIUM CITRATE 30 ML UDCUP PO PRN (04:00)
[2018-10-16] MEDS ORDERED: LIDOCAINE 2% 5 ML SDV ONE (06:01)
[2018-10-16] MEDS: CETIRIZINE 10 MG TAB PO SCH (08:17)
[2018-10-16] MEDS: OMEGA-3 FATTY ACIDS 1,000 MG CAP PO SCH ×2 (08:17→19:00)
[2018-10-16] MEDS: VITAMIN B COMPLEX 1 EA CAP/TAB PO SCH (08:17)
[2018-10-16] MEDS: ZIPRASIDONE HCL 40 MG CAP PO SCH ×2 (08:17→18:59)
[2018-10-16] MEDS: MONO LINYAH PO SCH (08:28)
[2018-10-16] MEDS: LEVOTHYROXINE 50 MCG TAB PO SCH (08:35)
[2018-10-16] MEDS ORDERED: fentaNYL 100 MCG/2 ML INJ ONE (10:01)
[2018-10-16] MEDS ORDERED: ONDANSETRON DISINTEGRATING 4 MG TAB ONE (11:35)
[2018-10-16] MEDS ORDERED: CITRIC ACID/SODIUM CITRATE 30 ML UDCUP ONE (11:35)
--- NOTE | 2018-10-16 12:09 | PDHPUP ---
History & Physical Update H&P update statement: This history and physical update is based on an assessment of the patient which was completed after admission or registration (within 24 hours), but prior to the surgery/procedure. H&P update: H&P reviewed & patient examined, changes noted (No changes since last treatment.)
--- NOTE | 2018-10-16 12:10 | PDANEPAE ---
ECT Pre Anesthetic Evaluation Allergies/Adverse Reactions: No Allergies [NKDA] Allergy (Verified 01/06/18 14:12) Patient ID confirmed: Yes H&P reviewed: Yes Pre-anesthetic history reviewed: Yes Heart: regular rate and rhythym Lungs: clear to auscultation Mallampati Score: Class 1 ASA Status: II Home Medications: Medication Instructions Recorded Vortioxetine Hydrobromide 20 mg PO DAILY 06/10/18 [Trintellix] Hydrocodone/APAP 5/325 [[place] 1 - 2 each PO Q4-6PRN PRN 06/15/18 5/325 (*)] Brexpiprazole [Rexulti 3 MG (*)] 3 mg PO DAILY 08/03/18 [place] Carbonate ER [Eskalith Cr 450 mg PO HS 08/17/18 450 mg (*)] Acetaminophen [Tylenol 325mg (*)] 325 mg PO DAILY PRN 10/12/18 Loratadine [Claritin 10 mg] 10 mg PO DAILY 10/12/18 [place]inyah 0.25-0.035 1 each PO DAILY 10/12/18 Prazosin HCl [Minipress 1mg (*)] 1 mg PO HS 10/12/18 Medication review: completed Patient interviewed: Yes Patient examined: Yes See previous record: Yes Anesthetic plan discussed with patient: Yes Anesthetic risks discussed with patient: Yes ECT Pre-Anesthetic History - Height & Weight Height: 157.48 cm Weight: 68.039 kg BMI: 27.46 - Anesthesia History Hx Anesthesia Complications (with details): no Family Hx Anesthesia Complications: no - Medications In the Past 6 Months the Patient Has Taken: Narcotics - Tobacco/Alcohol/Drug Use Smoking Status: Never smoked Hx Drug/Substance Abuse: Yes Alcohol Use: No (denies) - Prior Surgeries/Hospitalizations Prior Surgeries: none Prior Medical Hospitalizations: none - Pulmonary History ECT Hx Asthma: No Hx Abnormal Chest X-Ray: No Hx Oxygen in Use at Home: No - Cardiovascular History Hx Hypertension: No Currently Uses Hypertension Medication: No Hx Arrhythmias: No Hx Palpitations: No Hx Chest Pain: No Hx Coronary Artery / Peripheral Vascular Disease: No Hx Blood Clot: No - Neurologic History Hx Cerebrovascular Accident: No Hx CT Scan Or MRI Of The Brain: Yes Hx Epilepsy, Convulsions, Seizures, Or Blackouts: No Hx Frequent Or Severe Headaches: No Hx Numbness: No Hx Neurologic Disorder: No - Dental History Current Dental Issues: None - Endocrine History Hx Diabetes: No Current Daily Insulin Injections: No Hx Thyroid Problems: No - Renal/Urologic History Hx Renal Disorders: No Hx Urinary Tract Problems: No - Liver History Hx Hepatic Disorders: No - Cancer History Hx Cancer: No - Hematology History Hx Unexplained Bleeding Of Any Type: No Hx Ease Of Bruising: No Hx Anemia: No - Gastrointestinal History Hx Gastroesophogeal Reflux Disease: No Hx Ulcers: No Hx Hiatal Hernia: No Hx Difficulty Swallowing: No - Musculoskeletal Hisory Hx Chronic Pain: No Hx Arthritis: No - Opthalmic History Hx Glaucoma: No Visual Assistive Devices: None Hx Opthalmic Disorders: No - Other Health History Physical Disabililty: No Recent Cough, Cold, or Fever: Yes Significant Weight Loss In The Last 4 Months: No Possible the Patient Might be : No
[2018-10-16] MEDS ORDERED: HYDROCODONE/APAP 5/325 TAB PO PRN (12:38)
[2018-10-16] MEDS ORDERED: NALOXONE HCL 0.4 MG/ML INJ IVP PRN (12:38)
[2018-10-16] MEDS ORDERED: PROMETHAZINE HCL 25 MG TAB PO PRN (12:38)
--- NOTE | 2018-10-16 12:42 | PDECTPN ---
ECT Progress Note Patient Problems: Problems Problem Status Onset Code Bipolar disorder Acute F31.9 Alcohol abuse Acute F10.10 Bipolar disorder with current episode depressed Acute F31.30 Cluster B personality disorder Acute F60.9 Depression Acute F32.9 Marijuana abuse Acute F12.10 PTSD (post-traumatic stress disorder) Acute F43.10 Schizoaffective disorder, bipolar type Acute F25.0 Date: 10/16/18 ECT provider: Abdias Cartagena Stimulus dose (%): 100 Pulse width: 0.5 ECT EMG (sec): 32 ECT EEG (sec): 61 ECT treatment type: bilateral QIDS-SR Total Score: 7 QIDS-SR Question #12 Score: 0 MMSE Total Score (Max = 21): 20 Next ECT date: 10/19/18 Next ECT time: 09:00 O/P psychiatrist follow up with : Phil O/P psychiatrist follow up: phone, voice message Home medications: Medication Instructions Recorded Vortioxetine Hydrobromide 20 mg PO DAILY 06/10/18 [Trintellix] Hydrocodone/APAP 5/325 [[place] 1 - 2 each PO Q4-6PRN PRN 06/15/18 5/325 (*)] Brexpiprazole [Rexulti 3 MG (*)] 3 mg PO DAILY 08/03/18 [place] Carbonate ER [Eskalith Cr 450 mg PO HS 08/17/18 450 mg (*)] Acetaminophen [Tylenol 325mg (*)] 325 mg PO DAILY PRN 10/12/18 Loratadine [Claritin 10 mg] 10 mg PO DAILY 10/12/18 [place]-Linyah 0.25-0.035 1 each PO DAILY 10/12/18 Prazosin HCl [Minipress 1mg (*)] 1 mg PO HS 10/12/18 Current treatment plan: acute phase Treatment plan frequency: 3 times per week ECT narrative: see admit note. AIMS test is 0 Note from 10/13: Pt in bed while interviewed at 1045 am. Unkempt, disheveled. Affect blunted, Impov speech. Admits to feeling over sedated,likely due to addition to Geodon. SOme increase in tremor noted. [place] some "fear" and paranoia last night into today, but agrees that her overall mood and psychotic symptoms are a bit less intense post ECT. Has been ruminating about stories of " children found in the mountains" and admits she cannot provide a rational reason why she is dwelling on this theme. Some on going referential delusional material. Some AH. No iván CAH coaxing her to self harm. No clear w/d symptoms with d/c rexulti or trintillix both of which have long 1/2 lives[address] Read and appreciate Dr Almonte' s note. Have repleted pt with synthroid due to elevated TSH and potential for this to be correlated with mood instability. Hopefully, being off AD and Rexulti, pt may lose weight as Geodon is mostly metabolically neutral 10/14/18: Pt reports feeling less sedated from meds and woke up "with a lot of energy". Still appears somewhat unkempt and blunted, however. Still admits to paranoid and macabre ruminations about children in the mountains, as spoken of yesterday. She admits that she is jonesing to be discharged, yet acknowledges that this may not be an astute judgment given her recent CAH and SI, the latter of which still persists. No evidence of TD still. 10/16 Pt appears brighter, with better eye contact, QIDS is down and she denies SI. Some future orientation. Yet, still some night time paranoia, and tolerating increase in dinner time Geodon to 80 mg without akithesia, EPS, TD or over sedation. SOme uncertainty about who will provide supervision over weekend. CC yao help determine if Farhan can help out and bring her in for friday ECT. GM not bsck till Friday.
[2018-10-16] MEDS: PRAZOSIN HCL 1 MG CAP PO SCH (18:59)
[2018-10-16] MEDS: LITHIUM CARBONATE ER 300 MG TAB PO SCH (19:00)
[2018-10-17] MEDS: OMEGA-3 FATTY ACIDS 1,000 MG CAP PO SCH ×2 (09:23→21:17)
[2018-10-17] MEDS: VITAMIN B COMPLEX 1 EA CAP/TAB PO SCH (09:23)
[2018-10-17] MEDS: CETIRIZINE 10 MG TAB PO SCH (09:23)
[2018-10-17] MEDS: ZIPRASIDONE HCL 40 MG CAP PO SCH ×2 (09:24→17:25)
[2018-10-17] MEDS: MONO LINYAH PO SCH (09:24)
[2018-10-17] MEDS: LEVOTHYROXINE 50 MCG TAB PO SCH (09:29)
--- NOTE | 2018-10-17 15:12 | ASMTBHDC ---
Notes Note: Notes: According to [facility] staff, the patient required prompting to wake this morning. She reportedly slept "6.5 hours" overnight. The patient's affect seems "sad." She reported that she has coordinated her discharge with family. The patient plans to leave on 10/19/18 following ECT treatment. She confirmed that she will be supervised by her family and partner. Date Signed: 10/17/2018 03:11 PM Electronically Signed By:Soha Flores
[2018-10-17] MEDS: PRAZOSIN HCL 1 MG CAP PO SCH (21:17)
[2018-10-17] MEDS: LITHIUM CARBONATE ER 300 MG TAB PO SCH (21:17)
[2018-10-18] MEDS: VITAMIN B COMPLEX 1 EA CAP/TAB PO SCH (09:21)
[2018-10-18] MEDS: ZIPRASIDONE HCL 40 MG CAP PO SCH ×2 (09:21→19:17)
[2018-10-18] MEDS: LEVOTHYROXINE 50 MCG TAB PO SCH (09:21)
[2018-10-18] MEDS: OMEGA-3 FATTY ACIDS 1,000 MG CAP PO SCH ×2 (09:21→20:47)
[2018-10-18] MEDS: CETIRIZINE 10 MG TAB PO SCH (09:21)
[2018-10-18] MEDS: MONO LINYAH PO SCH (09:22)
--- NOTE | 2018-10-18 13:40 | ASMTBHDC ---
Notes Note: Notes: According to [facility] staff, the patient has been "calm and appropriate" in the milieu. She rates herself 0/10 on the suicide scale. The patient is hoping to discharge today, 10/16/18. This process description writer made it clear to the patient that the provider requested she have on-going support at home. This process description writer spoke with the patient's father and aunt who are unable to provide support for the patient until 10/19/18. The patient's father provided collateral on the patient's MH history and expressed his concern that the family does not set strong enough boundaries for the patient resulting in frequent hospitalizations. This process description writer encouraged the patient's family to communicate directly with the patient. This process description writer and the provider, Dr. Cartagena, sat down with the patient and explained to her that she will be staying in the hospital through the weekend and that we will re-evaulate on 10/19/18. Date Signed: 10/16/2018 03:13 PM Electronically Signed By:Soha Flores
--- NOTE | 2018-10-18 16:14 | SOAPPROG ---
SOAP Progress Note Assessment/Plan: Assessment: Per Dr. Cartagena's note: 10/16 Pt appears brighter, with better eye contact, QIDS is down and she denies SI. Some future orientation. Yet, still some night time paranoia, and tolerating increase in dinner time Geodon to 80 mg without akithesia, EPS, TD or over sedation. SOme uncertainty about who will provide supervision over weekend. CC yao help determine if Farhan can help out and bring her in for friday ECT. GM not bsck till Friday. Plan: 10/17/18 16:11 1. Patient "sad" she didn't get to discharge on Friday, but understands that her family were not able to provide the level of supervision you required until her GMOC returns on Friday. 2. Denies any SE's since recent med change. 3. Tolerating increased dose of [place]. 4. VOL Subjective: Patient disappointed that she is staying in hospital over w/e. But she understands that no one in her family was able to supervise her while her GMOC is out of town. She denies any physical complaints, and no s/s of EPS, after recent med changes. Objective: Vital Signs Temp Pulse Resp BP Pulse Ox 36.7 C 83 14 102/58 L 96 10/18/18 06:00 10/18/18 06:00 10/18/18 06:00 10/18/18 06:00 10/18/18 06:00 10/17/18 10/18/18 10/19/18 05:59 05:59 05:59 Intake Total 1000 Balance 1000 MSE: Affect: Flat Mood: "OK" TP: Linear TC: Denies any SI/HI Insight/ Judgment: Fair - Time Spent With Patient Time Spent With Patient: 15" - Pending Discharge Pending Discharge Within 24 Hours: No Pending Discharge Within 48 Hours: No ICD10 Worksheet Patient Problems: Problems Problem Status Onset Bipolar disorder Acute Alcohol abuse Acute Bipolar disorder with current episode depressed Acute Cluster B personality disorder Acute Depression Acute Marijuana abuse Acute PTSD (post-traumatic stress disorder) Acute Schizoaffective disorder, bipolar type Acute
--- NOTE | 2018-10-18 16:20 | SOAPPROG ---
SOAP Progress Note Assessment/Plan: Assessment: Per Dr. Cartagena's note: 10/16 Pt appears brighter, with better eye contact, QIDS is down and she denies SI. Some future orientation. Yet, still some night time paranoia, and tolerating increase in dinner time Geodon to 80 mg without akithesia, EPS, TD or over sedation. SOme uncertainty about who will provide supervision over weekend. CC yao help determine if Farhan can help out and bring her in for friday ECT. GM not bsck till Friday. Plan: 10/17/18 16:11 1. Patient "sad" she didn't get to discharge on Friday, but understands that her family were not able to provide the level of supervision you required until her GMOC returns on Friday. 2. Denies any SE's since recent med change. 3. Tolerating increased dose of [place]. 4. VOL 10/18/18 16:17 1. Patient feels "better" today. Slept 8 hrs last night. 2. Looking forward to leaving tomorrow. 3. ECT on Friday. 4. Ate 100% of meals, attended group therapy. Subjective: Patient continues to deny any SE's from recent med changes. Since increase in Geodon and [place], patient denies tremors, akathisia and EPS. There are no visible tremors present and patient does not exhibit any abnormal muscle movements. She says she has been "on look out" for these SE's herself, and is glad to report "I haven't noticed any." Objective: Vital Signs Temp Pulse Resp BP Pulse Ox 36.7 C 83 14 102/58 L 96 10/18/18 06:00 10/18/18 06:00 10/18/18 06:00 10/18/18 06:00 10/18/18 06:00 10/17/18 10/18/18 10/19/18 05:59 05:59 05:59 Intake Total 1000 Balance 1000 MSE: Affect: Flat Mood: "Better" TP: Linear, goal-directed TC: Denies any SI/ HI, no paranoia Insight/Judgment: Fair - Time Spent With Patient Time Spent With Patient: 15" - Pending Discharge Pending Discharge Within 24 Hours: Yes Pending Discharge Date: 10/19/18 (Likely to d/c home Friday after ECT) Pending Discharge Time: 11:00 ICD10 Worksheet Patient Problems: Problems Problem Status Onset Bipolar disorder Acute Alcohol abuse Acute Bipolar disorder with current episode depressed Acute Cluster B personality disorder Acute Depression Acute Marijuana abuse Acute PTSD (post-traumatic stress disorder) Acute Schizoaffective disorder, bipolar type Acute
[2018-10-18] MEDS: PRAZOSIN HCL 1 MG CAP PO SCH (20:47)
[2018-10-19] MEDS ORDERED: ONDANSETRON DISINTEGRATING 4 MG TAB PO PRN (04:00)
[2018-10-19] MEDS ORDERED: CITRIC ACID/SODIUM CITRATE 30 ML UDCUP PO PRN (04:00)
[2018-10-19] MEDS ORDERED: NS 1,000 ML IV PRN (04:00)
[2018-10-19] MEDS ORDERED: LIDOCAINE 2% 5 ML SDV ONE (06:20)
[2018-10-19] MEDS ORDERED: fentaNYL 100 MCG/2 ML INJ ONE (06:29)
[2018-10-19] MEDS ORDERED: ONDANSETRON 4 MG/2 ML VIAL ONE (06:30)
[2018-10-19] MEDS ORDERED: KETOROLAC 30 MG/1 ML SDV ONE (06:30)
[2018-10-19] MEDS ORDERED: ETOMIDATE 20 MG/10 ML VIAL ONE (06:30)
[2018-10-19] MEDS ORDERED: PROPOFOL 200 MG/20 ML VIAL ONE (06:30)
[2018-10-19] MEDS ORDERED: GLYCOPYRROLATE 0.2 MG/1 ML VIAL ONE (06:30)
[2018-10-19] MEDS ORDERED: ROCURONIUM 50 MG/5 ML VIAL ONE (06:31)
[2018-10-19] MEDS ORDERED: SUCCINYLCHOLINE CHLORIDE 200 MG/10 ML VIAL ONE (06:31)
[2018-10-19] MEDS ORDERED: ONDANSETRON DISINTEGRATING 4 MG TAB ONE (08:48)
[2018-10-19] MEDS ORDERED: CITRIC ACID/SODIUM CITRATE 30 ML UDCUP ONE (08:48)
--- NOTE | 2018-10-19 09:21 | PDHPUP ---
History & Physical Update H&P update statement: This history and physical update is based on an assessment of the patient which was completed after admission or registration (within 24 hours), but prior to the surgery/procedure. H&P update: H&P reviewed & patient examined, no change in patient's condition since H&P completed
--- NOTE | 2018-10-19 09:21 | PDANEPAE ---
ANE Past Medical History - Cardiovascular History Hx Hypertension: No Hx Arrhythmias: No Hx Chest Pain: No Hx Coronary Artery / Peripheral Vascular Disease: No Hx Palpitations: No - Pulmonary History Hx COPD: No Hx Asthma/Reactive Airway Disease: No Hx Recent Upper Respiratory Infection: No Hx Oxygen in Use at Home: No Hx Sleep Apnea: No - Neurologic History Hx Cerebrovascular Accident: No Hx Seizures: No Hx Dementia: No - Endocrine History Hx Diabetes: No Obesity: no - Renal History Hx Renal Disorders: No - Liver History Hx Hepatic Disorders: No - Cancer History Hx Cancer: No - Chronic Pain History Chronic Pain: No - Surgical History Prior Surgeries: none ANE Review of Systems Review of Systems: ANE Patient History - Allergies Allergies/Adverse Reactions: No Allergies [NKDA] Allergy (Verified 01/06/18 14:12) - Home Medications Home medications: home medication list seen and reviewed Home Medications: Loratadine [Claritin 10 mg] 10 mg PO DAILY 10/12/18 [Last Taken 10/11/18] - NPO status NPO Status: no food or drink >8 hours - Anes Hx Anes Hx: no prior problems - Smoking Hx Smoking Status: Never smoked - Family Anes Hx Family Hx Anesthesia Complications: no ANE Labs/Vital Signs - Labs Result Diagrams: 10/11/18 22:00 10/11/18 22:00 - Vital Signs Blood Pressure: 112/74 Heart Rate: 91 Respiratory Rate: 17 O2 Sat (%): 97 Height: 157.48 cm Weight: 71.3 kg ANE Physical Exam - Airway Neck exam: FROM Mallampati Score: Class 1 Mouth exam: normal dental/mouth exam - Pulmonary Pulmonary: no respiratory distress, no rales or rhonchi, clear to auscultation - Cardiovascular Cardiovascular: regular rate and rhythym, no murmur, rub, or gallop - ASA Status ASA Status: II ANE Anesthesia Plan Anesthesia Plan: GA with mask
[2018-10-19] MEDS ORDERED: MIDAZOLAM 2 MG/2 ML VIAL ONE (09:29)
[2018-10-19] MEDS ORDERED: PROMETHAZINE HCL 25 MG TAB PO PRN (09:35)
[2018-10-19] MEDS ORDERED: HYDROCODONE/APAP 5/325 TAB PO PRN (09:35)
[2018-10-19] MEDS ORDERED: NALOXONE HCL 0.4 MG/ML INJ IVP PRN (09:35)
--- NOTE | 2018-10-19 09:37 | POSTANESTH ---
Post Anesthetic Evaluation Cardiovascular Status: Normal, Stable, Similar to Pre-Op Cond Respiratory Status: Normal, Stable, Similar to Pre-op Cond. Level of Consciousness/Mental Status: Unconscious Complications Possibly Related to Anesthesia: None Noted
--- NOTE | 2018-10-19 09:39 | PDECTPN ---
ECT Progress Note Patient Problems: Problems Problem Status Onset Code Bipolar disorder Acute F31.9 Alcohol abuse Acute F10.10 Bipolar disorder with current episode depressed Acute F31.30 Cluster B personality disorder Acute F60.9 Depression Acute F32.9 Marijuana abuse Acute F12.10 PTSD (post-traumatic stress disorder) Acute F43.10 Schizoaffective disorder, bipolar type Acute F25.0 Date: 10/19/18 ECT provider: Abdias Cartagena Anesthesia: Noé Wu Stimulus dose (%): 100 Pulse width: 0.5 ECT EMG (sec): 31 ECT EEG (sec): 320 ECT treatment type: bilateral QIDS-SR Total Score: 7 QIDS-SR Question #12 Score: 0 MMSE Total Score (Max = 21): 20 Next ECT date: 10/26/18 Next ECT time: 09:00 O/P psychiatrist follow up with : Phil O/P psychiatrist follow up: phone, voice message Home medications: Medication Instructions Recorded Loratadine [Claritin 10 mg] 10 mg PO DAILY 10/12/18 Levothyroxine [Synthroid 50 mcg 50 mcg PO DAILY10 #30 tab 10/16/18 (*)] [place] Carbonate ER [Lithobid 300 600 mg PO HS #14 tab 10/16/18 mg (*)] [place]-Linyah 0.25-0.035 1 each PO DAILY 10/16/18 [place]-3 Fatty Acids [Fish Oil 1000 2,000 mg PO BID cap 10/16/18 mg (*)] Prazosin HCl [Minipress 1mg (*)] 1 mg PO HS cap 10/16/18 Propranolol HCl [Inderal 10mg (*)] 10 mg PO TID PRN #90 tab 10/16/18 Vitamin B Complex [Vitamin B 1 ea PO DAILY ea 10/16/18 Complex (OTC)] Ziprasidone HCl [Geodon 40MG (*)] 40 mg PO DAILY #90 cap 10/16/18 Current treatment plan: acute phase Treatment plan frequency: 3 times per week ECT narrative: see admit note. AIMS test is 0 Note from 10/13: Pt in bed while interviewed at 1045 am. Unkempt, disheveled. Affect blunted, Impov speech. Admits to feeling over sedated,likely due to addition to Geodon. SOme increase in tremor noted. [place] some "fear" and paranoia last night into today, but agrees that her overall mood and psychotic symptoms are a bit less intense post ECT. Has been ruminating about stories of " [place] found [place] the [place]" and admits she cannot provide a rational reason why she is dwelling on this theme. Some on going referential delusional material. Some AH. No iván CAH coaxing her to self harm. No clear w/d symptoms with d/c rexulti or trintillix both of which have long 1/2 lives. Read and appreciate Dr Almonte' s note. Have repleted pt with synthroid due to elevated TSH and potential for this to be correlated with mood instability. Hopefully, being off AD and Rexulti, pt may lose weight as Geodon is mostly metabolically neutral 10/14/18: Pt reports feeling less sedated from meds and woke up "with a lot of energy". Still appears somewhat unkempt and blunted, however. Still admits to paranoid and macabre ruminations about [place] the mountains, as spoken of yesterday. She admits that she is jonesing to be discharged, yet acknowledges that this may not be an astute judgment given her recent CAH and SI, the latter of which still persists. No evidence of TD still. 10/16 Pt appears brighter, with better eye contact, QIDS is down and she denies SI. Some future orientation. Yet, still some night time paranoia, and tolerating increase in dinner time Geodon to 80 mg without akithesia, EPS, TD or over sedation. SOme uncertainty about who will provide supervision over weekend. CC yao help determine if Mahmoud can help out and bring her in for friday ECT. GM not bsck till Friday. 10/[address] Soria's notes. Pt QIDs /0, denies SI, hopelessness and CAH to harm self. Displays future orientation, wishing to see extended family for holidays and return to work. No SE noted with Increased Li or Geodon. I do note some tremor and reminded her she has propranolol prn to try for that. An Rx has been written for it. No signs of TD. Paranoia still present but abated in intensity
[2018-10-19] MEDS ORDERED: HYDROCODONE/APAP 5/325 TAB ONE (10:04)
[2018-10-19] MEDS ORDERED: PROPRANOLOL HCL 10 MG TAB ONE (10:04)
[2018-10-19 10:35] VITALS: BP 106/70
[2018-10-19] MEDS: VITAMIN B COMPLEX 1 EA CAP/TAB PO SCH (10:58)
[2018-10-19] MEDS: CETIRIZINE 10 MG TAB PO SCH (10:58)
[2018-10-19] MEDS: ZIPRASIDONE HCL 40 MG CAP PO SCH (10:58)
[2018-10-19] MEDS: OMEGA-3 FATTY ACIDS 1,000 MG CAP PO SCH (10:59)
--- NOTE | 2018-10-19 15:54 | GDS ---
IDENTIFYING DATA: The patient is a 28-year-old single white female who has been under the care of th is creative services writer for outpatient maintenance, ECT, and prior inpatient hospitalization in May of 2018. Chele oneal sees Chaka Sam NP for psychopharmacology. She lives with her grandmother in [place]. 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 Her last inpatient stay was in May of 2018. She was admitted this time on 10/11/20 and discharged today, 10/19/2018. REASON FOR ADMISSION: This patient suffers with schizoaffective disorder, PTSD, and substance use di sorder, who developed exacerbation, including psychotic symptoms and enhanced depressive symptoms cul minating in hopelessness and suicidal thinking. Her QUIDS score was 21, with question #12 being a 2. She has visual hallucinations and command auditory hallucinations to hurt herself, prompting the ad mission in particular. Vegetative symptoms such as sleep and appetite disturbance are described. Af fect is blunted and speech is impoverished, with poor self-care and hygiene noted. ROUTINE PHYSICAL EXAM,: Performed by Reynaldo Almonte, which reveals: 1. Mental health issues, receiving ongoing ECT therapy per Dr. Cartagena. 2. Weight gain, possibly due to psychiatric medications. She has begun and recently intensified an exercise program. She might benefit from consultation with dietitian, as avoidance of further weight gain would be in her best interest. LAB TESTING: Patient's CBC was within normal limits. Her Bio Chem profile was normal. TSH was elev ated at 6.08 with normal free T4 and free T3. Beta HCG was negative. Urine toxicology was negative. Her lithium level drawn 24 hours after her last dose of 450 mg per day was low at 0.2 (she does, ho wever complain of tremor with this medication). HOSPITAL COURSE: The patient gave her informed consent to re-initiate acute bilateral ECT treatment, which has historically helped her most expediently and robustly for an exacerbation of her mood and psychotic symptoms. She underwent these treatments with negligible headache or nausea, and subtle co gnitive impairment, but to good effect with brightening of affect and improvement in depression. By the time of her discharge, she was without suicidal ideation for a few days and had had no command vasquez llucinations to harm herself. She remained with some residual nocturnal paranoia, but even the inten sity of this had abated nicely. She underwent some medication changes as well. After discussion with Chaka Sam, we decided that s he should be taken off her Rexulti and have a new anticonvulsant with more metabolically neutral prof ile initiated. Hence, she was quickly titrated on Geodon up to 40 mg at breakfast and 80 mg at bedti me. Trintellix likewise was discontinued given presumed lack of efficacy. Her lithium carbonate was increased from 450 mg a day up to 600 mg given the subtherapeutic level. Propranolol 10 mg every 8 hours was prescribed to help with lithium-related tremor and for the possibility of Geodon-related ak athisia. An AIMS exam was done, which revealed no evidence of tardive dyskinesia. She had shown jamie e incipient evidence of this when the Rexulti dose had been increased to 4 mg. Because of her possib le predisposition to that condition, she was instructed to obtain vitamin E 400 mg IU b.i.d. twice da jose and hmgl-rzz-sfejxsi gingko biloba upon discharge. These supplements may putatively help reduce the likelihood of the onset of tardive dyskinesia. Hopefully, the Rexulti was also in part to blame for her recent weight gain, which should be much improved with its replacement with the weight neutra l Geodon. Her EKG revealed a normal QTc interval of 450. Arguably, Geodon might also have some bett er effect for this patient's positive psychotic symptoms compared to the partial dopamine agonist, Re xulti. She tolerated the medication changes well. She initially had some increased sedation with the Geodon , but that quickly abated. No evidence of akathisia, tardive dyskinesia, or any other extrapyramidal side effect. DISCHARGE MEDICATIONS: Geodon 40 mg p.o. q. breakfast and 80 mg p.o. q. dinner, vitamin B complex 1 p.o. daily, propranolol 10 mg p.o. q.8 hours p.r.n. restlessness or tremor, Prazosin 1 mg p.o. at bed time, omega-3 fatty acids 2000 mg twice daily, lithium carbonate 600 mg at bedtime, Synthroid 50 mcg p.o. daily ( this was started given her elevated TSH and newly introduced lithium). She is to rechec k TSH with her primary care docs in about 6 weeks. Claritin 10 mg p.o. daily and Tyler-Linyah 0.25-0. 035 one p.o. daily. (She is off Trintellix and Rexulti at this time. DISPOSITION: The patient will return home to her father and extended family, and ultimately grandmot her when she returns from [place] on Friday. She should have 24/7 supervision for at least [address] for that same period of time given cognitive impact of ECT. Other people should monit or and dispense her medications. Any potential lethal means of self-harm such as sharps, firearms, m edications, and car keys should be removed from her access. She understands that she can use propran olol as needed for either lithium-induced tremor or possible Geodon-induced restlessness, which has n ot yet occurred. I have informed Aayushfelipe Joneselia of these med changes. She is also newly prescribed th yroid supplement and needs to follow up with her family doc in 6 weeks to recheck a TSH. Her next EC T is scheduled for 1 week, 10/26 at 9 a.m. DISCHARGE DIAGNOSIS: [place]: Schizoaffective disorder, bipolar type; THC and alcohol use disorder, in remission, and PTSD. /[id number]/MODL
== END 2018-10-19 11:24 | disposition home or self-care (01) | DRG 885 ==
LOC: BBEH 10-12 09:37
PROVIDERS: ADMIT Psychiatry & Neurology Psychiatry; ATTEND Psychiatry & Neurology Psychiatry
PROC: GZB0ZZZ Electroconvulsive Therapy, Unilateral-Single Seizure (ICD-10-PCS; principal; 2018-10-12)
DX: F25.0 Schizoaffective disorder, bipolar type (principal); F43.12 Post-traumatic stress disorder, chronic; F10.11 Alcohol abuse, in remission; F12.11 Cannabis abuse, in remission; E03.9 Hypothyroidism, unspecified
CPT/HCPCS: 80305; 84481-90; G0480; J0330; J1885; J2250; J2405; J2704; J3010